=== PATIENT | female | born 1990 | race Caucasian/White ===

== ENCOUNTER 2018-02-03 12:41 | Emergency (ER) | payer MEDICAID, OTHER ==
[2018-02-03 13:47] VITALS: O2SAT 100
[2018-02-03 14:11] LABS: BASO % 0.3 % (0.0-2.0); EOS # 0.2 K/uL (0.0-0.7); EOS % 1.6 % (0.0-4.0); HEMOGLOBIN 13.3 g/dL (11.0-16.0); LYMPH # 2.6 K/uL (1.0-4.3); LYMPH % 23.9 % (20.0-40.0); MEAN CELL VOLUME 83.5 fL (81.0-99.0); MEAN CORPUSCULAR HEMOGLOBIN 28.6 pg (27.0-31.0); MEAN CORPUSCULAR HGB CONC 34.2 g/dL (33.0-37.0); MONO # 0.7 K/uL (0.0-0.8); MONO % 6.5 % (0.0-10.0); NEUT # 7.2 K/uL (1.8-7.0); NEUT % 67.7 % (50.0-75.0); RBC 4.67 Mil/uL (3.80-5.20); WHITE BLOOD COUNT 10.7 K/uL (4.8-10.8)
[2018-02-03 14:17] LABS: HCG,QUALITATIVE URINE POSITIVE (NEGATIVE)
[2018-02-03 14:22] LABS: SQUAMOUS EPITHIAL 9 /hpf (0-5); URINE BACTERIA RARE (<OCC); URINE BILIRUBIN NEGATIVE (NEGATIVE); URINE BLOOD 1+ (NEGATIVE); URINE CLARITY Clear (Clear); URINE COLOR Yellow (YELLOW); URINE GLUCOSE (UA) NORMAL (Normal); URINE LEUKOCYTE ESTERASE NEG Leu/uL (Negative); URINE PROTEIN NEGATIVE (NEGATIVE)
[2018-02-03 14:28] LABS: ALB/GLOB RATIO 1.3 (1.0-2.1); ALBUMIN 4.1 g/dL (3.5-5.0); ALT/SGPT 58 U/L (9-52); AST/SGOT 80 U/L (14-36); BLOOD UREA NITROGEN 6 mg/dL (7-17); CALCIUM 8.9 mg/dl (8.6-10.4); GFR NON-AFRICAN AMERICAN > 60; LIPASE 48 U/L (23-300)
--- NOTE | 2018-02-03 14:29 | C.PDOC ---
History Of Present Illness 27 year old female presents to the ED for evaluation of cramping, lower abdominal pain which began around two weeks ago. She reports episodes of loose stools yesterday, but no episodes today. Patient is unsure of whether she may be . She denies nausea, vomiting and vaginal discharge. Time Seen by Provider: 02/03/18 13:36 Chief Complaint (Nursing): GI Problem History Per: Patient History/Exam Limitations: no limitations Onset/Duration Of Symptoms: Other (two weeks ) Current Symptoms Are (Timing): Still Present Location Of Pain/Discomfort: Other (lower abdomen ) Quality Of Discomfort: Cramping, "Pain" Associated Symptoms: Other (loose stools ). denies: Nausea, Vomiting Additional History Per: Patient Abnormal Vaginal Bleeding: No Past Medical History Reviewed: Historical Data, Nursing Documentation, Vital Signs Vital Signs: Last Vital Signs Temp 98.2 F 02/03/18 13:11 Pulse 92 H 02/03/18 13:11 Resp 20 02/03/18 13:11 BP 120/78 02/03/18 13:11 Pulse Ox 100 02/03/18 13:11 - Medical History PMH: No Chronic Diseases Surgical History: No Surg Hx Family History: States: Unknown Family Hx - Social History Hx Alcohol Use: Yes Hx Substance Use: No - Immunization History Hx Tetanus Toxoid Vaccination: No Hx Influenza Vaccination: No Hx Pneumococcal Vaccination: No Review Of Systems Gastrointestinal: Positive for: Abdominal Pain (lower ), Other (loose stools ). Negative for: Nausea, Vomiting Genitourinary: Negative for: Vaginal Discharge Physical Exam - Physical Exam Appears: Non-toxic, No Acute Distress, Other (obese, white female ) Skin: Normal Color, Warm, Dry Head: Atraumatic, Normacephalic Eye(s): bilateral: Normal Inspection Oral Mucosa: Moist Neck: Supple Chest: Symmetrical, No Deformity, No Tenderness Cardiovascular: Rhythm Regular, No Murmur Respiratory: Normal Breath Sounds, No Rales, No Rhonchi, No Wheezing Gastrointestinal/Abdominal: Soft, No Tenderness, No Guarding, No Rebound, Other (large panniculus ) Extremity: Normal ROM, Capillary Refill (less than 2 seconds ) Neurological/Psych: Oriented x3, Normal Speech, Normal Cognition ED Course And Treatment - Laboratory Results Result Diagrams: 02/03/18 14:05 02/03/18 14:05 Lab Interpretation: Normal (qhct [id number], Rh A+) Urine POC: Positive O2 Sat by Pulse Oximetry: 100 (on RA) Pulse Ox Interpretation: Normal Progress Note: Bloodwork, urinalysis, Obstructive Series XR, and Pelvic/Transvaginal ultrasound ordered and reviewed. Reevaluation Time: 16:57 Reassessment Condition: Unchanged Medical Decision Making Medical Decision Making: threatened AB/ demise IUP too small for dates, no FHT Disposition Doctor Will See Patient In The: Office Counseled Patient/Family Regarding: Studies Performed, Diagnosis - Disposition Disposition: HOME/ ROUTINE Disposition Time: 16:57 Condition: GOOD Forms: [facility] (Faroese) - Clinical Impression Clinical Impression: Pelvic cramping - Scribe Statement The provider has reviewed the documentation as recorded by the Scribe (Irma Gonzales) Provider Attestation: All medical record entries made by the Scribe were at my direction and personally dictated by me. I have reviewed the chart and agree that the record accurately reflects my personal performance of the history, physical exam, medical decision making, and the department course for this patient. I have also personally directed, reviewed, and agree with the discharge instructions and disposition.
--- NOTE | 2018-02-03 16:41 | US ---
Date of service: 02/03/2018 Indication: early preg, crampy lower abd Comparison: None available Technique: Real-time transabdominal pelvic ultrasound was performed. In addition a transvaginal pelvic ultrasound was necessary to better depict pelvic anatomy. Findings: Uterus measures approximately 7.5 x 5.0 x 6.0 cm. Retroverted. Cervix length measures approximately 3.3 cm. There is a single intrauterine fetus present. 3 mm yolk sac. The gestational sac measures 1.1 cm and is compatible with a gestational age of 5 weeks 1 day. The crown-rump length measures 0.2 cm, too small for gestational age calculation. heart motion is not detected at this time. The right ovary measures 5.7 x 3.6 x 5.2 cm and contains 3.3 cm and 2.4 cm cysts. The left ovary measures 5.0 x 3.4 x 4.7 cm and contains 4.1 cm and 0.8 cm cysts.. Flow was demonstrated to both ovaries. Small pelvic free fluid. Impression: Single intrauterine with estimated gestational age 5 weeks 1 day by gestational sac calculation. [place]-rump length measures 0.2 cm which is too small for gestational age calculation. heart motion is not detected at this time. Recommend close interval follow-up as indicated. Small pelvic free fluid. Bilateral ovarian cysts.
[2018-02-03 17:11] VITALS: BP 117/80; PULSE 91; RESP 18; TEMP 98.1
== END 2018-02-03 17:15 | disposition home or self-care (01) ==
LOC: C.ER 12:41
DX: O26.891 Other specified pregnancy related conditions, first trimester (principal); R10.2 Pelvic and perineal pain; Z3A.01 Less than 8 weeks gestation of pregnancy